=== PATIENT | male | born 1995 | race Caucasian/White ===

== ENCOUNTER 2016-05-27 02:05 | Emergency (ER) | payer OTHER ==
--- NOTE | 2016-05-27 03:38 | ER Document Report ---
ED Head/Face/Scalp Injury - General Chief Complaint: Head Injury Stated Complaint: HEAD LACERATION Time seen by provider: 03:35 Mode of Arrival: Ambulatory Information source: Patient TRAVEL OUTSIDE OF THE [place] IN LAST 30 DAYS: No - HPI Patient complains to provider of: Laceration Injury to: Head Location of problem: Head Occurred: Just prior to arrival Where: Work Timing: Still present Context: Direct blow Loss consciousness: No loss of consciousness Remembers: Injury, Coming to hospital Notes: Patient is a 20-year-old male who presents to emergency room complaining of laceration to the posterior portion of his scalp that occurred just prior to arrival, states he was at work, and accidentally bumped into the wing of an aircraft, causing a laceration, denies any loss of consciousness, no dizziness, no blurred vision, no nausea or vomiting, states his tetanus shot is up-to-date - Related Data Allergies/Adverse Reactions: No Known Allergies Allergy (Verified 05/27/16 02:44) Past Medical History - General Information source: Patient - Social History Smoking Status: Never Smoker Chew tobacco use (# tins/day): No Frequency of alcohol use: None Drug Abuse: None Family History: Reviewed & Not Pertinent Patient has suicidal ideation: No Patient has homicidal ideation: No Renal/ Medical History: Denies: Hx Peritoneal Dialysis Review of Systems - Review of Systems Constitutional: No symptoms reported EENT: No symptoms reported Cardiovascular: No symptoms reported Respiratory: No symptoms reported Gastrointestinal: No symptoms reported Genitourinary: No symptoms reported Male Genitourinary: No symptoms reported Musculoskeletal: No symptoms reported Skin: See HPI Hematologic/Lymphatic: No symptoms reported Neurological/Psychological: No symptoms reported -: Yes All other systems reviewed and negative Physical Exam - Vital signs Vitals: Temp Pulse Resp BP Pulse Ox 98.1 F 82 18 134/75 H 97 05/27/16 02:29 05/27/16 02:29 05/27/16 02:29 05/27/16 02:05/27/16 02:29 - Notes Notes: - General General appearance: Appears well, Alert In distress: None - HEENT Head: Normocephalic, 1 cm superficial laceration to the left posterior scalp, mild swelling and tenderness, no active bleeding Eyes: Normal Conjunctiva: Normal Extraocular movements intact: Yes Eyelashes: Normal Pupils: PERRL - Respiratory Respiratory status: No respiratory distress - Cardiovascular Rhythm: Regular - Abdominal Inspection: Normal - Back Back: Normal - Extremities General upper extremity: Normal inspection General lower extremity: Normal inspection - Neurological Neuro grossly intact: Yes Orientation: AAOx4 [place]on[place] Coma Scale Eye Opening: Spontaneous [place] Coma Scale Verbal: Oriented [place] Coma Scale Motor: Obeys Commands [place] Coma Scale Total: 15 - Psychological Associated symptoms: Normal affect, Normal mood - Skin Skin Temperature: Warm Skin Moisture: Dry Skin Color: Normal Course - Re-evaluation Re-evalutation: 05/27/16 03:36 Wound was repaired using Dermabond, patient was advised to follow-up with his primary care provider one to 2 days or return if symptoms worsen, he was given wound care instructions as well, advised to return if symptoms worsen, patient acknowledges understanding and agreement with this plan - Vital Signs Vital signs: Temp Pulse Resp BP Pulse Ox 98.1 F 82 18 134/75 H 97 05/27/16 02:29 05/27/16 02:29 05/27/16 02:29 05/27/16 02:29 05/27/16 02:29 Procedures - Laceration/Wound Repair Left Posterior Head Time completed: 03:37 Wound length (cm): 1 Wound's Depth, Shape: Superficial, Linear Laceration pre-procedure: Sterile PPE donned Wound explored: Clean Irrigated w/ Saline (mLs): 500 Wound Repaired With: Dermabond Post-procedure NV exam normal: Yes Complications: No Adult Head Front/Back picture: 1 - 1 cm superficial laceration Discharge - Discharge Clinical Impression: Scalp laceration Qualifiers: Encounter type: initial encounter Qualified Code(s): S01.01XA - Laceration without foreign body of scalp, initial encounter Condition: Stable Disposition: HOME, SELF-CARE Instructions: Skin Adhesive Closure ([facility]) Additional Instructions: Follow up with your primary care provider in one to 2 days. Return to the emergency room immediately if symptoms worsen or any additional concerns. Do not place any creams or lotions over skin adhesive as this will prematurely dissolve.
[2016-05-27 03:51] VITALS: BP 123/83
== END 2016-05-27 03:49 | disposition home or self-care (01) ==
LOC: ER 02:05
DX: S01.01XA Laceration without foreign body of scalp, initial encounter (principal); W22.8XXA Striking against or struck by other objects, initial encounter; Y93.89 Activity, other specified; Y99.0 Civilian activity done for income or pay
CPT/HCPCS: 99282